=== PATIENT | female | born 1995 | race Caucasian/White ===

== ENCOUNTER 2022-07-07 22:38 | Emergency (ER) | payer SELFPAY ==
[2022-07-08 00:06] VITALS: BP 149/96; PULSE 98
[2022-07-08] MEDS ORDERED: Acetaminophen 325 MG Tab PO ONE (00:35)
[2022-07-08] MEDS ORDERED: Ibuprofen 400 MG Tab PO ONE (00:36)
[2022-07-08] MEDS ORDERED: Morphine 4 MG/ML Syringe IVPUSH ONE (01:03)
[2022-07-08 02:09] LABS: CARBON DIOXIDE,CO2 23.7 mmol/L (21.0-32.0); POTASSIUM,K 3.6 mmol/L (3.5-5.1)
== END 2022-07-08 03:25 | disposition home or self-care (01) ==
LOC: MW.ED 22:38
DX: B08.4 Enteroviral vesicular stomatitis with exanthem (principal)
CPT/HCPCS: 36415; 80053; 82550; 85025; 96374; 99283; A9270; J2270

== ENCOUNTER 2024-05-02 13:14 | Emergency (ER) | payer SELFPAY ==
[2024-05-02] MEDS: Rabies Immune Globulin/PF (HyperRAB) 300 UNIT/ML 5 ML SDV IM ONE (15:55)
[2024-05-02] MEDS: Amoxicillin/Clavulanate K 875-125 MG Tab PO STA (15:59)
[2024-05-02] MEDS: Diphtheria,Pertussis(Acell),Tetanus Vaccine 0.5 ML Syringe IM ONE (15:59)
[2024-05-02] MEDS: Rabies Vaccine (Avian) 2.5 Unit Inj Kit IM ONE (16:00)
[2024-05-02 16:37] VITALS: BP 149/90; PULSE 86
== END 2024-05-02 16:36 | disposition home or self-care (01) ==
LOC: MW.ED 13:14
DX: S61.451A Open bite of right hand, initial encounter (principal); Z23 Encounter for immunization; Z75.8 Other problems related to medical facilities and other health care; W55.01XA Bitten by cat, initial encounter
CPT/HCPCS: 90375; 90471; 90675; 90715; 96372; 99283; A9270

== ENCOUNTER 2024-05-05 12:44 | Emergency (ER) | payer SELFPAY ==
[2024-05-05 12:59] VITALS: BP 137/88; PULSE 67
[2024-05-05] MEDS: Rabies Vaccine (Avian) 2.5 Unit Inj Kit IM ONE (13:12)
== END 2024-05-05 13:31 | disposition left against medical advice (07) ==
LOC: MW.ED 12:44
DX: Z29.14 Encounter for prophylactic rabies immune globulin (principal); Z23 Encounter for immunization
CPT/HCPCS: 90471; 90675; 99281-25